=== PATIENT | female | born 1995 | race African-American/Black ===

== ENCOUNTER 2021-04-30 13:42 | Emergency (ER) | payer MEDICAID ==
[~2021-04-30] VITALS: Ht 160 cm; Wt 107.0 kg
[2021-04-30 15:50] LABS: BASOPHILS % 0.4 % (0.0-2.0); EOSINOPHILS % 1.5 % (0.0-5.0); HEMATOCRIT. 38.1 % (36.0-48.0); HEMOGLOBIN. 12.7 g/dL (12.0-16.0); LYMPHOCYTES % 20.1 % (20.0-50.0); MEAN CORPUSCULAR HEMOGLOBIN 28.5 pg (28.0-32.0); MEAN CORPUSCULAR VOLUME 85.2 fL (81.0-99.0); MEAN PLATELET VOLUME 10.5 fl (7.4-10.4); MONOCYTES % 7.1 % (2.0-8.0); NEUTROPHILS % 70.9 % (40.0-76.0); PLATELET 209 x1000/uL (130-400); RED BLOOD CELL COUNT 4.47 mill/uL (4.2-5.4); RED CELL DISTRIBUTION WIDTH 13.9 % (11.6-14.6)
[2021-04-30 15:55] LABS: CHLORIDE 108 mEq/L (98-107)
[2021-04-30] MEDS ORDERED: KETOROLAC 30MG/ML VIAL IV STA (16:03)
[2021-04-30] MEDS ORDERED: METOCLOPRAMIDE HCL 10MG/2ML VIAL IV STA (16:03)
[2021-04-30] MEDS ORDERED: SODIUM CHLORIDE 0.9% 1,000 ML IV ONE (16:15)
[2021-04-30 16:52] LABS: HCG SCREEN NEGATIVE
[2021-04-30 16:54] LABS: CLARITY URINE CLEAR (CLEAR); COLOR URINE YELLOW (YELLOW); KETONES URINE TRACE (NEGATIVE); LEUKOCYTE ESTERASE URINE 1+ (NEGATIVE); NITRITE URINE NEGATIVE (NEGATIVE); OCCULT BLOOD URINE NEGATIVE (NEGATIVE); PH URINE 6.5 (4.5-8.0); PROTEIN URINE NEGATIVE (NEGATIVE); SPECIFIC GRAVITY URINE 1.029 (1.005-1.030)
[2021-04-30] MEDS ORDERED: CEFTRIAXONE 1 G PREMIX 50 ML IV ONE (18:30)
[2021-04-30] MEDS ORDERED: ONDA4TAB5 PO (18:45)
[2021-04-30] MEDS ORDERED: SULF1TAB48 MT (18:45)
[2021-04-30] MEDS ORDERED: NAPR-681 PO (18:45)
[2021-04-30] MEDS ORDERED: BISM-77 PO (18:45)
[2021-04-30 19:30] VITALS: BP 118/69
[2021-04-30] MEDS ORDERED: IOHEXOL-300 100 ML BOTTLE ONE (19:53)
== END 2021-04-30 19:35 | disposition home or self-care (01) ==
LOC: ER 13:42
DX: N39.0 Urinary tract infection, site not specified (principal)
CPT/HCPCS: 36415; 74177; 80053; 81003; 83690; 84703; 85025; 96365; 96375; 99285; J0696; J1885; J2765; J7030; Q9967

== ENCOUNTER 2021-12-03 05:57 | Emergency (ER) | payer MEDICAID ==
[~2021-12-03] VITALS: Ht 157.5 cm; Wt 90.4 kg
[~2021-12-03 05:57] MED LIST: BISM-77 PO; NAPR-681 PO; ONDA4TAB5 PO; SULF1TAB48 MT
[2021-12-03 06:08] VITALS: BP 121/59
[2021-12-03] MEDS ORDERED: DOXY100C5 MT (06:36)
[2021-12-03] MEDS ORDERED: DOXYCYCLINE HYCLATE 100MG CAPSULE PO SCH (06:45)
[2021-12-03] MEDS ORDERED: CEFTRIAXONE SODIUM 500 MG/VIAL IM SCH (06:45)
[2021-12-03 06:58] LABS: CLARITY URINE CLOUDY (CLEAR); COLOR URINE YELLOW (YELLOW); KETONES URINE NEGATIVE (NEGATIVE); LEUKOCYTE ESTERASE URINE 2+ (NEGATIVE); NITRITE URINE NEGATIVE (NEGATIVE); OCCULT BLOOD URINE NEGATIVE (NEGATIVE); PROTEIN URINE NEGATIVE (NEGATIVE); SPECIFIC GRAVITY URINE 1.027 (1.005-1.030)
== END 2021-12-03 07:19 | disposition home or self-care (01) ==
LOC: ER 05:57
DX: A64 Unspecified sexually transmitted disease (principal); J45.909 Unspecified asthma, uncomplicated; Z79.899 Other long term (current) drug therapy
CPT/HCPCS: 81003; 81025; 96372; 99283; J0696